=== PATIENT | female | born 1965 | race Caucasian/White ===

== ENCOUNTER 2020-11-22 07:54 | Observation (INO) ==
[~2020-11-22 07:54] MED LIST: MORPHINE SULFATE 15 MG TABLET.SA PO PRN; ROPIVACAINE/CLONIDIN/KETOROLAC 50 ML SYRINGE IJ PRN; TRANEXAMIC ACID 1,000 MG in NORMAL SALINE 100 ML IV PRN; ceFAZolin SODIUM 1 GM VIAL IV PRN
[2020-11-22] MEDS: RINGER'S SOLUTION,LACTATED 1,000 ML IV PRN ×2 (08:12→11:12)
--- NOTE | 2020-11-22 09:21 | ANES ---
Anesthesia Pre Procedure Eval Vitals/Labs: Last Vital Signs Temp 36.7 C 11/22/20 07:58 Pulse 98 11/22/20 07:58 Resp 14 11/22/20 07:58 BP 166/78 H 11/22/20 07:58 Pulse Ox 96 11/22/20 07:58 HOME MEDICATIONS amlodipine 10 mg tablet 10 mg PO DAILY tab 10/05/20 [Last Taken Unknown] atorvastatin 20 mg tablet 20 mg PO DAILY tab 10/05/20 [Last Taken Unknown] benazepril 40 mg tablet 40 mg PO DAILY tab 10/05/20 [Last Taken Unknown] buspirone 15 mg tablet 15 mg PO BID tab 10/05/20 [Last Taken Unknown] duloxetine 30 mg capsule,delayed release 30 mg PO DAILY cap 10/05/20 [Last Taken Unknown] escitalopram oxalate 5 mg tablet 5 mg PO DAILY tab 10/05/20 [Last Taken Unknown] glipizide 2.5 mg tablet, extended release 24 hr 2.5 mg PO BID tab 10/05/20 [Last Taken Unknown] hydrochlorothiazide 25 mg tablet 25 mg PO DAILY tab 10/05/20 [Last Taken Unknown] meloxicam 15 mg tablet 15 mg PO DAILY tab 10/05/20 [Last Taken Unknown] metformin 500 mg tablet,extended release 24 hr 500 mg PO BID tab 10/05/20 [Last Taken Unknown] metoprolol tartrate 100 mg tablet 150 mg PO DAILY tab 10/05/20 [Last Taken Unknown] omeprazole 40 mg capsule,delayed release 40 mg PO DAILY cap 10/05/20 [Last Taken Unknown] potassium chloride 10 mEq capsule,extended release 10 meq PO BID cap 10/05/20 [Last Taken Unknown] tizanidine 2 mg tablet 2 mg PO HS tab 10/05/20 [Last Taken Unknown] tramadol 50 mg tablet 50 mg PO DAILY tab 10/05/20 [Last Taken Unknown] Allergies/Adverse Reactions: Allergies Allergy/AdvReac Type Severity Reaction Status Date / Time Penicillins Allergy Intermediate hives Verified 11/22/20 08:14 - Planned Procedure Planned Procedure: Right Arthroplasty Total Knee Medication List Reviewed:: Yes Allergies Verified: Yes Medical History (Last Reviewed 11/22/20 @ 09:20 by Kendrick Van CRNA) Diabetes mellitus History of colon polyps Onset Date: ~05/2016 History of prediabetes Hyperlipemia Hx of chronic arthritis Hx of gastroesophageal reflux (GERD) Hx of primary hypertension Surgical History (Last Reviewed 11/22/20 @ 09:20 by Kendrick Van CRNA) History of esophagogastroduodenoscopy (EGD) Onset Date: ~05/2016 Hx of colonoscopy Onset Date: ~05/2016 polyps [id number] 5 years Hx of left knee surgery Onset Date: Unknown tka-Cookson Hx of tubal ligation Onset Date: Unknown Family History (Last Reviewed 11/22/20 @ 09:20 by Kendrick Van CRNA) Mother Cancer bone, breast Sister Cancer breast Father Cancer colon Alcohol abuse Other No pertinent family history - Family Anesthesia History Family History:: no untoward family reactions to anesthesia, no familial bleeding tendencies, no family history of clotting disorders, no family history of premature - Airway/Neck/Teeth Denture Type: Full upper Mallampatti Score: 4 Thyromental (T-M) distance: > 6 cm Mandibulo Hyoid distance: > 3 cm - Respiratory Respiratory History: CPAP/BiPAP home use Respiratory Physical: lungs clear Smoking Status: Never smoker Discussed smoking cessation including day of surgery: No Sleep Apnea currently treated: No Sleep Apnea by current assessment: Yes - Cardiovascular Tolerate Activity: Fair Heart Sounds: S1 & S2, Regular - Gastrointestinal NPO since: mn - Anesthesia Assessment and Plan ASA Class: PS, III Anesthesia Type Plan: Block - Right ultrasound guided adductor canal nerve block for postop analgesia, Spinal
[2020-11-22] MEDS ORDERED: NALOXONE HCL 0.4 MG/ML VIAL IV PRN (09:22)
[2020-11-22] MEDS ORDERED: ONDANSETRON HCL/PF 2 MG/ML VIAL IV PRN ×2 (09:22→11:55)
[2020-11-22] MEDS ORDERED: diphenhydrAMINE HCL 50 MG/ML VIAL IV PRN ×2 (09:22→11:55)
[2020-11-22] MEDS ORDERED: HYDROmorphone HCL 2 MG/ML VIAL IV PRN (09:22)
[2020-11-22] MEDS ORDERED: fentaNYL CITRATE/PF 50 MCG/ML AMPUL ONE (09:28)
[2020-11-22] MEDS ORDERED: LIDOCAINE HCL 20 ML VIAL ONE (09:28)
[2020-11-22] MEDS ORDERED: BUPIVACAINE HCL/EPINEPHRINE/PF 30 ML VIAL IJ ONE (09:28)
[2020-11-22] MEDS ORDERED: PROPOFOL VIAL IV ONE (09:29)
[2020-11-22] MEDS ORDERED: ROPIVACAINE/CLONIDIN/KETOROLAC 50 ML SYRINGE IJ ONE (09:31)
[2020-11-22] MEDS ORDERED: ceFAZolin SODIUM 1 GM VIAL ONE (09:31)
[2020-11-22] MEDS ORDERED: RINGER'S SOLUTION,LACTATED 1,000 ML IV PRN (11:55)
[2020-11-22] MEDS ORDERED: MORPHINE SULFATE 2 MG/ML DISP.SYRIN IV PRN (11:55)
[2020-11-22] MEDS ORDERED: ZOLPIDEM TARTRATE 5 MG TABLET PO PRN (11:55)
[2020-11-22] MEDS ORDERED: MAG HYDROX/ALUMINUM HYD/SIMETH 30 ML UDC PO PRN (11:55)
[2020-11-22] MEDS ORDERED: ACETAMINOPHEN 500 MG TABLET PO PRN (11:55)
[2020-11-22] MEDS ORDERED: MAGNESIUM HYDROXIDE 30 ML UDC PO PRN (11:55)
--- NOTE | 2020-11-22 11:55 | OR ---
Operative Report - Dictated Report Narrative: Date: 11/22/2020 Preoperative diagnosis: Right knee degenerative joint disease. Postoperative diagnosis: Right knee degenerative joint disease. Procedure: Right total knee arthroplasty. Surgeon: Ramirez Torres M.D. Toolroom Checker: Randy Parrish PA-C (provided and essential set of skilled, educated hands that assisted with transfer, positioning, prepping, draping, manipulation, retraction, placement of jigs, injection, insertion of implants, irrigation, closure wounds, and dressings all of which could not be performed by the available surgical crew) Anesthesia: Spinal with regional block and local periarticular joint injection. Complications: None Specimens: Bone. Estimated blood loss: Minimal. Tourniquet time: 75 minutes at 325 millimeters of mercury. Retained implants: Depuy Attune size 6 narrow right lugged cemented posterior stabilized femoral component. Size 5 fixed-bearing cemented tibial platform. 6 by 6 millimeter posterior stabilized cross-linked tibial insert. 41 millimeter medialized patella button. Indications: Mrs. Stiles is a 55-year-old female who has had longstanding right knee pain and arthrosis. This patient was followed in my clinic for period of time with significant complaints of right knee pain consistent with arthritic changes. She had failed conservative measures including, but not limited to, activity modification, passage of time, medications, and other conservative measures. Patient wished to proceed with surgical treatment. The risks, benefits, and alternatives were discussed in clinic. The risks of , blood clots, bleeding, infection, nerve/tendon blood vessel/ injury, malposition of components, intraoperative fracture, postoperative limited range of motion, persistent pain, failure of components, and need for additional procedures. Patient wished to proceed consent was obtained after answering all questions. Procedure: After marking the correct extremity on the floor, the patient was taken to the operating room. A timeout was performed. IV antibiotics consisting of Ancef were administered prior to the procedure. A regional followed by spinal anesthetic was induced by anesthesia, per my request, on the operative table with all bony prominences well-padded. Chicas catheter was placed, and a bump was placed under the operative side buttock. SCDs and ANILA hose were utilized on the nonoperative leg. A well-padded tourniquet was applied to the operative thigh. The operative leg was then pre-scrubbed with alcohol, prepped, and draped in a standard sterile fashion. After exsanguinating the extremity with an Esmarch bandage, the tourniquet was inflated. After marking out the anterior knee for standard incision centered over the patella, the skin was incised and dissected down to the joint retinaculum. The joint retinaculum was marked out as well as the horizontal axis of the patella, and a standard medial parapatellar arthrotomy was then made. The most proximal aspect of the quadriceps tendon and the patella tendon insertion were protected from release. A partial synovectomy was performed as well as a resection of the infrapatellar fat pad. The distal femoral fat pad proximal to the trochlea was also resected using cautery. The soft tissues were elevated off the medial aspect of the proximal tibia using a Hemphill elevator ensuring that we did not transect the medial collateral ligament. Upon initial evaluation range of motion was approximately 0 degrees to 120 degrees of flexion. There were signs of advanced arthrosis in the medial and patellofemoral greater than lateral joint spaces. There were large marginal osteophytes which were removed with a rongeur. The knee was hyperflexed and the patella was tucked laterally. Protecting the surrounding soft tissues with Homans, an entry drill was placed down the femoral canal using Whitesides line for guidance into the entry point. The intramedullary femoral alignment sylvester was utilized in order to cut the distal femur in 5 degrees of valgus resecting 10 millimeters of bone. Next the distal femur was sized to a size 6. A posterior referencing guide was utilized to place the distal femoral cutting block in 3 degrees of external rotation. This was pinned into place. The rotation was confirmed both visually and based on anatomic landmarks. The 4 in 1 cutting jig of the appropriate size was utilized in order to make all bony cuts. The nica wing was used to ensure no notching. Retractors were utilized in order to protect surrounding soft tissues. This cut did not result in any excessive notching. We then cut the box centered over the distal femur. This allowed for resection of the anterior and posterior cruciate ligaments. I then turned my attention to the preparation of the tibia. Using an extra medullary tibial alignment sylvester, 3 millimeters of bone was resected off the medial articular surface. This was made perpendicular to the mechanical axis of the joint with the alignment sylvester centered over the ankle mortise. The alignment sylvester was checked and was noted to be parallel to the mechanical axis, centered over the medial one third of the tibial tubercle, paralleling the anterior surface of the tibia. We then turned our attention to the remaining meniscus and soft tissues. These were removed while protecting the surrounding ligaments and soft tissues. The marginal osteophytes off the anterior, posterior, medial, lateral aspects of the femur and tibia were removed. The tibia was sized out to a size 5. Next the tibia was drilled and punched in an externally rotated position. Next the trial femur and a series of tibial inserts were utilized in order to allow for full extension and maximal flexion. It was found that a 6 millimeter insert gave the best range of motion and stability at multiple flexion points as well as at full extension there was less than 2 mm of gapping both medially and laterally. There is minimal anterior translation with the knee at 90 degrees of flexion and no signs of being able to dislocate the knee. The patella was then prepared. The initial thickness was 21 millimeters. This was reamed down to 12 millimeters parallel to the anterior surface of the patella. It was sized out to a size 41 medialized patella button. This was th en drilled and trialed. Without any medial restraint the patella tracked appropriately and did not sublux or dislocate. At this point, it was felt these were the appropriate sized implants, and all trials were removed. The standard periarticular joint injection consisting of ropivacaine, Toradol, and epinephrine were injected into the periarticular joint tissues. The bony surfaces were thoroughly irrigated with a pulsatile-suction saline irrigation device. A bone plug from the prior resected anterior chamfer cut was placed into the drill hole at the distal femur. The bony surfaces were then dried in preparation for placement of the implants. The cement was vacuum mixed per the licensed psychologist director's instructions. The cement was placed on the dry bony surfaces and posterior aspect of the implants. The implants were impacted into place, removing all extruded cement. At this point anesthesia administered tranexamic acid per protocol intravenously. The knee was placed in extension with axial loading with the trial insert while the cement cured. Once the cement cured, all remaining extruded cement was removed. The knee was placed through a range of motion with the trial insert to ensure appropriate range of motion and stability. Final range of motion was approximately 0 to 120 degrees. The knee was again thoroughly irrigated with pulsatile saline lavage. The final polyethylene insert was then impacted into place ensuring no retained soft tissues. The remaining periarticular joint injection was injected. A medium Hemovac drain was placed exiting superior laterally. The knee was then placed over a triangle and the arthrotomy was closed with interrupted #1 Vicryl after thoroughly irrigating the joint. The deep and subcutaneous tissues were closed with interrupted 0 and 3-0 Vicryl respectively. Skin was closed with a running subcutaneous 3-0 Monocryl and Prineo Dermabond dressing. 4 x 4's, Sof-Rol, and a full leg Micheal wrap were applied. All sponge, needle, blade, and instrument counts were correct prior to closing the wounds. Postoperative condition: The patient was awoken and transferred to the postanesthesia care unit in stable condition. Plan is to be admitted to the inpatient medical/surgical floor postoperatively for 24 hours of IV antibiotics, physical therapy, occupational therapy, and medical comanagement. Patient will be weightbearing as tolerated with range of motion as tolerated. DVT prophylaxis will be with SCDs, ANILA hose, and pharmacological anticoagulation. Anticipated hospital stay is approximately 1-3 days.
--- NOTE | 2020-11-22 12:33 | ANES ---
Post Anesthesia Discharge - Transfer of Care Transfer of Care handoff given to nurse: Yes - Discharge from PACU Discharge from PACU when meets criteria: Yes - Discharge to ASU Discharge to ASU-no complications/pt stable: Yes
--- NOTE | 2020-11-22 12:35 | ANES ---
Anesthesia Procedure Note Procedure Note: ANESTHESIA PROCEDURE NOTE Date of Procedure: 11/22/2020. Time of procedure: 1005. Performed by: Kendrick Van CRNA Snack Bar Cook: None. Preprocedure diagnosis: Right knee degenerative joint disease. Post procedure diagnosis: Same. Procedure: Right ultrasound guided femoral block for postoperative analgesia. Indications: The patient is a 55-year-old female, requesting right ultrasound- guided femoral nerve block for postoperative analgesia related to right total knee arthroplasty. Findings: See below. Details of the procedure: The tissue over the intended target site was cleansed with ChloraPrep. 1 ml Lidocaine 1 % was infiltrated to the skin and subcutaneous tissue. Under sterile technique and ultrasound guidance a 21-gauge block needle was inserted anterior to the right femoral nerve . 15 mL's of 0.5% bupivacaine plus epinephrine 1:200,000 was injected after negative aspiration for blood. Needle tip and spread of local anesthetic surrounding the femoral nerve was observed throughout the injection with realtime ultrasound visualization. The needle was removed intact. No complications were noted. The images were retained in the Hospital medical database . EBL: Minimal. Fluids: N/A. Specimen: N/A. Post procedure condition: The patient tolerated the procedure well. No c omplications were noted. Thank you for this consultation. Kendrick Van CRNA
[2020-11-22] MEDS: KETOROLAC TROMETHAMINE 15 MG/ML VIAL IV SCH ×2 (14:21→18:53)
[2020-11-22] MEDS: CEFAZOLIN SODIUM/DEXTROSE,ISO 1 GM/50 ML BAG IV SCH ×2 (14:24→18:53)
--- NOTE | 2020-11-22 14:47 | ANES ---
Post Anesthesia Assessment - Vital Signs Vitals: Last Vital Signs Temp 36.3 C 11/22/20 12:30 Pulse 87 11/22/20 12:30 Resp 18 11/22/20 12:30 BP 154/76 H 11/22/20 12:30 Pulse Ox 96 11/22/20 12:30 Airway Patency: Normal - Mental Status Level Of Consciousness: Awake - Pain Level Pain Score: 0 - N/V Assessment Nausea/Vomiting Presence: None Dehydration:: No
[2020-11-22] MEDS: oxyCODONE HCL/ACETAMINOPHEN 1 TAB TABLET PO PRN ×2 (16:58→21:25)
[2020-11-22] MEDS: busPIRone HCL 5 MG TABLET PO SCH (20:15)
[2020-11-22] MEDS: POTASSIUM CHLORIDE 10 MEQ TABLET.SA PO SCH (20:16)
[2020-11-22] MEDS: glipiZIDE 2.5 MG TAB.SR.24H PO SCH (20:20)
[2020-11-22] MEDS ORDERED: SENNOSIDES/DOCUSATE SODIUM 1 TAB TABLET PO SCH (21:00)
[2020-11-22] MEDS ORDERED: tiZANidine HCL 4 MG TABLET PO SCH (21:00)
[2020-11-22] MEDS ORDERED: ROSUVASTATIN CALCIUM 10 MG TABLET PO SCH (21:00)
[2020-11-23] MEDS: KETOROLAC TROMETHAMINE 15 MG/ML VIAL IV SCH ×3 (00:14→11:55)
[2020-11-23] MEDS: CEFAZOLIN SODIUM/DEXTROSE,ISO 1 GM/50 ML BAG IV SCH (00:32)
[2020-11-23 06:30] LABS: Hematocrit 35.4 % (37.0-47.0); Mean Cell Volume 95.2 fl (78-100); Mean Corpuscular Hemoglobin 29.6 pg (27-31); Mean Corpuscular Hgb Conc 31.1 g/dl (32-36); Mean Platelet Volume 9.4 fl (8-12.5); Platelet Count 232 K/mm3 (150-450); Red Blood Count 3.72 M/mm3 (4.2-5.4); Red Cell Distribution Width 15.2 % (11.5-14.0); White Blood Count 9.5 K/mm3 (4.0-10.5)
[2020-11-23 06:38] LABS: Anion Gap 13.6 mmol/L (6.8-13.8); BUN/Creatinine Ratio 16.7 (9.0-21.6); Calcium * 9.1 mg/dL (7.9-10.9); Carbon Dioxide 27.5 mmol/L (24-32.6); Estimated Creat Clear 63.8; Potassium 4.1 mmol/L (3.4-4.6)
[2020-11-23] MEDS ORDERED: PANTOPRAZOLE SODIUM 40 MG TABLET.EC PO SCH (07:00)
[2020-11-23] MEDS: oxyCODONE HCL/ACETAMINOPHEN 1 TAB TABLET PO PRN ×2 (07:47→12:00)
[2020-11-23] MEDS ORDERED: METOPROLOL TARTRATE 100 MG TABLET PO SCH (09:00)
[2020-11-23] MEDS ORDERED: ESCITALOPRAM OXALATE 5 MG TABLET PO SCH (09:00)
[2020-11-23] MEDS ORDERED: METOPROLOL TARTRATE 100 MG, METOPROLOL TARTRATE 50 MG PO SCH ×2 (09:00)
[2020-11-23] MEDS ORDERED: amLODIPine BESYLATE 10 MG TABLET PO SCH (09:00)
[2020-11-23] MEDS ORDERED: HYDROCHLOROTHIAZIDE 25 MG TABLET PO SCH (09:00)
[2020-11-23] MEDS ORDERED: DULoxetine HCL 30 MG CAPSULE.SA PO SCH (09:00)
[2020-11-23] MEDS ORDERED: ENALAPRIL MALEATE 20 MG TABLET PO SCH (09:00)
[2020-11-23] MEDS: busPIRone HCL 5 MG TABLET PO SCH (10:00)
[2020-11-23] MEDS: POTASSIUM CHLORIDE 10 MEQ TABLET.SA PO SCH (10:01)
[2020-11-23] MEDS: glipiZIDE 2.5 MG TAB.SR.24H PO SCH (10:05)
[2020-11-23] MEDS ORDERED: ENOXAPARIN SODIUM 40 MG/0.4 ML SYRG SC SCH (10:56)
--- NOTE | 2020-11-23 12:35 | DS ---
(1) DM II (diabetes mellitus, type II), controlled Problem: Chronic (2) Hypertension Problem: Chronic (3) Hyperlipidemia Problem: Chronic (4) Status post right knee replacement Problem: Acute (5) GERD (gastroesophageal reflux disease) Problem: Chronic (6) Anxiety and depression Problem: Chronic (7) Obesity Problem: Chronic Qualifiers: Obesity classification: adult class 3 (BMI >= 40) Body mass index: BMI 40.0-44.9 (8) Hypertriglyceridemia Problem: Chronic Date of Discharge:: 11/23/20 Hospital Course: Mrs. Stiles was admitted to the floor after undergoing right total knee arthroplasty. Tolerated this well. Was admitted to the floor postoperatively for 24 hours of IV antibiotics, pain control, medical comanagement, and occupational and physical therapy. OT and PT were consulted to assist with activities of daily living and ambulation. Was made weightbearing as tolerated with range of motion as tolerated. Pain was initially controlled with IV regimen. This was transitioned to oral once tolerating a by mouth intake. Was resumed on home diet and medications. A Chicas catheter was inserted in the operating room which was discontinued by postoperative day 1. A drain was placed intraoperatively into the knee which was discontinued on postoperative day 1. Lovenox, SCDs, and ANILA hose were utilized for DVT prophylaxis. Vital signs remained stable to the hospital course. Labs were obtained which showed a final hemoglobin of 11.0 grams. BMP was reviewed and was stable. Physical examination throughout the hospital course showed an extremity that had sensation that was intact to light touch, palpable pulses, a benign wound, motor intact to the toes, ankle, and knee. Knee range of motion was approximately 5 degrees to 45 degrees. Once an oral pain regimen was tolerated and physical therapy goals were met, it was felt that they were stable for discharge to home. Instructions: Continue with weightbearing as tolerated and range of motion as tolerated. It is okay to shower and get the wound wet as long as there is no drainage from the wound. Do not bathe or soak the wound. If there is any drainage from the wound keep the wound clean and dry and cover with dry gauze and tape. Change every 2- 3 days as needed if there is any drainage. Cover wound while showering if there is any drainage. Continue with physical therapy. Resume home diet. Report any fever over 101.5 Fahrenheit, uncontrolled pain, increased drainage, foul odor of drainage, new or increased calf pain or shortness of breath, or any other significant complaints. A 325mg daily aspirin will be started after finishing anticoagulation if not allergic. Continue with ANILA hose on the operative extremity until instructed otherwise. No driving until instructed otherwise. Follow up in approximately 2-3 weeks. Procedures Performed: see notes below List Procedures: Right total knee arthroplasty Results and Findings: Lab Pending Results 11/23/20 06:26: WBC 9.5, RBC 3.72 L, Hgb 11.0 L, Hct 35.4 L, MCV 95.2, MCH 29.6, MCHC 31.1 L, RDW 15.2 H, Plt Count 232, MPV 9.4 11/23/20 06:26: Sodium 141, Plasma Sodium 142, Potassium 4.1, Chloride 104, Carbon Dioxide 27.5, Anion Gap 13.6, BUN 14, Creatinine 0.84, Est GFR (Non-Af Amer) 74, BUN/Creatinine Ratio 16.7, Random Glucose 134 H, Calcium 9.1 Disposition: Home self-care Condition: Good Discharge Activity: Activity as tolerated, Weight bearing Discharge Diet: Consistent carbs Referrals: Randy Parrish, PAC [Primary Care Provider] - Additional Patient Instructions (free text): Physical Therapy [facility] on November 25 at 12:30pm. Please fax PT order and demographics to fax# [phone]. Follow up [facility] Orthopedic office appointment on SundayDecember 14 at 10:30am. Prescriptions (Any new or edited meds): Enoxaparin Sodium [Lovenox] 40 mg SC Q24H #7 disp.syrin Transmission Status: Pending to [facility] oxyCODONE HCL/ACETAMINOPHEN [Percocet 5 MG/325 MG] 1 - 2 tab PO Q4H PRN #50 tab PRN Reason: Moderate Pain (Pain Scale 4-6) Transmission Status: Sent to [facility] Sennosides/Docusate Sodium [Senokot-S] 2 tab PO HS #60 tab Transmission Status: Pending to [facility] Complete Home Medications List: Complete Home Medication List: amlodipine 10 mg tablet 10 mg PO DAILY tab 10/05/20 atorvastatin 20 mg tablet 20 mg PO DAILY tab 10/05/20 benazepril 40 mg tablet 40 mg PO DAILY tab 10/05/20 buspirone 15 mg tablet 15 mg PO BID tab 10/05/20 duloxetine 30 mg capsule,delayed release 30 mg PO DAILY cap 10/05/20 escitalopram oxalate 5 mg tablet 5 mg PO DAILY tab 10/05/20 glipizide 2.5 mg tablet, extended release 24 hr 2.5 mg PO BID tab 10/05/20 hydrochlorothiazide 25 mg tablet 25 mg PO DAILY tab 10/05/20 meloxicam 15 mg tablet 15 mg PO DAILY tab 10/05/20 metformin 500 mg tablet,extended release 24 hr 500 mg PO BID tab 10/05/20 metoprolol tartrate 100 mg tablet 150 mg PO DAILY tab 10/05/20 omeprazole 40 mg capsule,delayed release 40 mg PO DAILY cap 10/05/20 potassium chloride 10 mEq capsule,extended release 10 meq PO BID cap 10/05/20 tizanidine 2 mg tablet 2 mg PO HS tab 10/05/20 Enoxaparin Sodium [Lovenox] 40 mg SC Q24H #7 disp.syrin 11/23/20 Sennosides/Docusate Sodium [Senokot-S] 2 tab PO HS #60 tab 11/23/20 oxyCODONE HCL/ACETAMINOPHEN [Percocet 5 MG/325 MG] 1 - 2 tab PO Q4H PRN #50 tab 11/23/20 Amb Orders for Discharge: PT Evaluation and Treatment* Facility: [facility], Location: Rehabilitation Services Forms: Patient Portal Registration
[2020-11-23 14:48] VITALS: BP 147/68
== END 2020-11-23 14:14 | disposition home or self-care (01) ==
LOC: MS 07:54 → SUR 07:54
PROVIDERS: ADMIT Orthopaedic Surgery; ATTEND Orthopaedic Surgery